=== PATIENT | female | born 1995 | race Two or more races ===

== ENCOUNTER 2023-12-31 17:21 | Emergency (ER) | payer OTHER ==
[~2023-12-31] VITALS: Ht 170.2 cm; Wt 59.0 kg
[2023-12-31] MEDS ORDERED: KETOROLAC TROMETHAMINE 30 MG VIAL IM STA (19:57)
[2023-12-31] MEDS ORDERED: ORPHENADRINE CITRATE 30 MG/ML AMPUL IM STA (19:57)
== END 2023-12-31 20:56 | disposition home or self-care (01) ==
LOC: ER 17:21
DX: S76.911A Strain of unspecified muscles, fascia and tendons at thigh level, right thigh, initial encounter (principal); X58.XXXA Exposure to other specified factors, initial encounter; Y93.B1 Activity, exercise machines primarily for muscle strengthening; Y92.39 Other specified sports and athletic area as the place of occurrence of the external cause; Y99.9 Unspecified external cause status; Z88.8 Allergy status to other drugs, medicaments and biological substances